=== PATIENT | female | born 1970 | race American Indian/Alaskan Native ===

== ENCOUNTER → 2021-03-31 | Day surgery (SDC) | payer OTHER | END | disposition home or self-care (01) | LOC: FMAMMOTONE 12:47 | PROVIDERS: ATTEND Obstetrics & Gynecology | PROC: 0HBT3ZX Excision of Right Breast, Percutaneous Approach, Diagnostic (ICD-10-PCS; principal; 2021-03-31) | DX: N60.31 Fibrosclerosis of right breast (principal); N64.89 Other specified disorders of breast; R92.1 Mammographic calcification found on diagnostic imaging of breast | CPT/HCPCS: 19081; 76098-TC-FY; 88305-TC ==

== ENCOUNTER → 2022-11-30 | Day surgery (SDC) | payer OTHER | END | disposition home or self-care (01) | LOC: JRADIR 09:21 | PROVIDERS: ATTEND Internal Medicine Endocrinology, Diabetes & Metabolism | PROC: 0G9G3ZX Drainage of Left Thyroid Gland Lobe, Percutaneous Approach, Diagnostic (ICD-10-PCS; principal; 2022-11-30) | DX: E04.1 Nontoxic single thyroid nodule (principal) | CPT/HCPCS: 10005; 76942; 88173; 88305-TC ==

== ENCOUNTER → 2023-03-23 | Day surgery (SDC) | payer OTHER | END | disposition home or self-care (01) | LOC: JRADIR 09:36 | PROVIDERS: ATTEND Internal Medicine Endocrinology, Diabetes & Metabolism | PROC: 0G9H3ZX Drainage of Right Thyroid Gland Lobe, Percutaneous Approach, Diagnostic (ICD-10-PCS; principal; 2023-03-23) | DX: E04.1 Nontoxic single thyroid nodule (principal) | CPT/HCPCS: 10005; 76942; 88173; 88305-TC ==